=== PATIENT | male | born 2000 | race African-American/Black ===

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

== ENCOUNTER 2020-01-29 15:43 | Emergency (ER) | payer OTHER ==
[~2020-01-29] VITALS: Ht 177.8 cm; Wt 121.0 kg
[2020-01-29] MEDS ORDERED: HYDR26CR TP (15:54)
[2020-01-29] MEDS ORDERED: VISCOUS LIDOCAINE 2% 15 ML UDC PO STA (16:54)
[2020-01-29] MEDS ORDERED: ONDANSETRON HCL 4MG/2ML INJ IV STA (16:54)
[2020-01-29] MEDS ORDERED: MAGNESIUM/ALUMINUM HYDROXIDE/SIMETHICONE 30ML UDC PO STA (16:54)
[2020-01-29] MEDS ORDERED: SODIUM CHLORIDE 0.9% 1,000 ML IV ONE (16:54)
[2020-01-29 17:20] LABS: BASOPHILS % 0.6 % (0.0-2.0); EOSINOPHILS % 0.3 % (0.0-5.0); HEMATOCRIT. 45.2 % (42.0-52.0); HEMOGLOBIN. 15.4 g/dL (14.0-18.0); LYMPHOCYTES % 33.1 % (20.0-50.0); MEAN CORPUSCULAR HEMOGLOBIN 29.8 pg (28.0-32.0); MEAN CORPUSCULAR VOLUME 87.6 fL (80.0-94.0); MEAN PLATELET VOLUME 9.4 fl (7.4-10.4); MONOCYTES % 11.8 % (2.0-8.0); NEUTROPHILS % 54.2 % (40.0-76.0); PLATELET 216 x1000/uL (130-400); RED BLOOD CELL COUNT 5.16 mill/uL (4.7-6.1); RED CELL DISTRIBUTION WIDTH 13.9 % (11.6-14.6)
[2020-01-29 17:25] LABS: CHLORIDE 105 mEq/L (98-107)
[2020-01-29 17:27] LABS: PROTHROMBIN TIME 11.2 sec (9.6-11.0)
[2020-01-29] MEDS ORDERED: KETOROLAC 30MG/ML VIAL IV ONE (17:30)
[2020-01-29] MEDS ORDERED: LIDOCAINE HCL 2% JELLY 5ML TOP ONE (17:45)
[2020-01-29] MEDS ORDERED: LIDOCAINE HCL 2% JELLY 5ML ONE (18:02)
[2020-01-29 20:32] VITALS: BP 119/78
== END 2020-01-29 20:42 | disposition home or self-care (01) ==
LOC: ER 15:43
DX: K64.4 Residual hemorrhoidal skin tags (principal); R10.9 Unspecified abdominal pain
CPT/HCPCS: 36415; 74021; 80053; 83690; 85025; 85610; 96374; 99285; J1885; J7030

== ENCOUNTER 2023-01-18 22:49 | Emergency (ER) | payer MEDICAID, OTHER ==
[~2023-01-18] VITALS: Ht 177.8 cm; Wt 122.0 kg
[~2023-01-18 22:49] MED LIST: DEXA6TAB MT; GUAI600T44 MT
[2023-01-19] MEDS ORDERED: IBUPROFEN 600MG TABLET PO STA (02:40)
[2023-01-19 03:19] VITALS: BP 123/74
[2023-01-19] MEDS ORDERED: NAPR-681 PO (03:46)
[2023-01-19] MEDS ORDERED: AMOX-494 PO (03:46)
== END 2023-01-19 04:00 | disposition home or self-care (01) ==
LOC: ER 22:49
DX: J03.90 Acute tonsillitis, unspecified (principal); I10 Essential (primary) hypertension; J45.909 Unspecified asthma, uncomplicated
CPT/HCPCS: 87070; 87430; 99283